=== PATIENT | female | born 1980 | race Caucasian/White ===

== ENCOUNTER 2016-12-04 07:23 | Emergency (ER) | payer MEDICAID, OTHER ==
[2016-12-04 07:32] VITALS: BP 122/76; PULSE 70; RESP 20; TEMP 98
--- NOTE | 2016-12-04 09:14 | ED ---
General Adult HPI - General Chief complaint: Eye Problems Stated complaint: chemical in eyes - [facility] Time Seen by Provider: 12/04/16 08:57 Source: patient, RN notes reviewed Mode of arrival: ambulatory Limitations: no limitations - History of Present Illness Initial comments: Patient 36-year-old female who presents emergency room today with a chief complaint of chemical exposure to her eyes. She admits that this happened approximately 2 hours ago. She states that she immediately flushed her eyes out. She states she was wearing contacts she did take them out Foster eyes. She states her eyes back in with tap water cleaning off the contacts. She states that he feel little dry. She denies any other complaints or symptoms. Patient denies any recent fever, chills, shortness of breath, chest pain, back pain, abdominal pain, nausea or vomiting, numbness or tingling, dysuria or hematuria, constipation or diarrhea, headaches or visual changes, or any other complaints. - Related Data Home Medications Medication Instructions Recorded Confirmed Cetirizine HCl [Zyrtec] 10 mg PO DAILY 04/22/16 12/04/16 Garlic 1 tab PO DAILY 12/04/16 12/04/16 Ibuprofen [Motrin] 600 mg PO Q6HR PRN 12/04/16 12/04/16 [place]-3 Fatty Acids/Fish Oil [Fish 1 cap PO DAILY 12/04/16 12/04/16 Oil 1,000 mg Softgel] Allergies Allergy/AdvReac Type Severity Reaction Status Date / Time No Known Allergies Allergy Verified 12/04/16 07:43 Review of Systems ROS Statement: Those systems with pertinent positive or pertinent negative responses have been documented in the HPI. ROS Other: All systems not noted in ROS Statement are negative. Past Medical History Past Medical History: No Reported History History of Any Multi-Drug Resistant Organisms: None Reported Past Surgical History: No Surgical Hx Reported Additional Past Surgical History / Comment(s): sinus surgery Past Psychological History: No Psychological Hx Reported Smoking Status: Never smoker Past Alcohol Use History: Occasional Past Drug Use History: None Reported General Exam - General Exam Comments Initial Comments: General: The patient is awake and alert, in no distress, and does not appear acutely ill. Eye: Pupils are equal, round and reactive to light, extra-ocular movements are intact. No nystagmus. There is normal conjunctiva bilaterally. No signs of icterus. Ears, nose, mouth and throat: There are moist mucous membranes and no oral lesions. Neck: The neck is supple, there is no JVD. Cardiovascular: There is a regular rate and rhythm. No murmur, rub or gallop is appreciated. Respiratory: Lungs are clear to auscultation, respirations are non-labored, breath sounds are equal. No wheezes, stridor, rales, or rhonchi. Musculoskeletal: Normal ROM, no tenderness. Strength 5/5. Sensation intact. Pulses equal bilaterally 2+. Neurological: A&O x 3. CN II-XII intact, There are no obvious motor or sensory deficits. Coordination appears grossly intact. Speech is normal. Skin: Skin is warm and dry and no rashes or lesions are noted. Psychiatric: Cooperative, appropriate mood & affect, normal judgment. Limitations: no limitations Course Vital Signs 12/04/16 07:29 Temperature 98 F Pulse Rate 70 Respiratory 20 Rate Blood Pressure 122/76 O2 Sat by Pulse 100 Oximetry Medical Decision Making - Medical Decision Making PH was checked in both eyes which is 7.0 bilaterally. Patient did flush her eyes. It was recommended that she takes her contacts out. She states she does have glasses in a car that she can wear. Patient advised to discard this pair of contacts. Advised to continue saline drops throughout the day as needed for comfort. Advised return for any other concerns. Disposition Clinical Impression: Chemical exposure of eye Disposition: HOME SELF-CARE Condition: Good Instructions: Eye Wash (Into the eye) Additional Instructions: Please continue use saline drops in ear eyes as needed throughout the day. Please discard pair of contacts as discussed. Please return to emergency room if any symptoms increase or worsen or for any other concerns. Time of Disposition: 09:13
== END 2016-12-04 09:31 | disposition home or self-care (01) ==
LOC: EC 07:23
DX: Z77.098 Contact with and (suspected) exposure to other hazardous, chiefly nonmedicinal, chemicals (principal); Z79.899 Other long term (current) drug therapy
CPT/HCPCS: 99283

== ENCOUNTER 2017-01-09 14:27 | Emergency (ER) | payer MEDICAID, OTHER ==
[2017-01-09 14:35] VITALS: BP 121/67; PULSE 75; RESP 16; TEMP 97.6
--- NOTE | 2017-01-09 14:49 | ED ---
Lower Extremity Injury HPI - General Chief Complaint: Extremity Injury, Lower Stated Complaint: Ankle Injury Time Seen by Provider: 01/09/17 14:37 Source: patient, RN notes reviewed Mode of arrival: ambulatory Limitations: no limitations - History of Present Illness Initial Comments: 36-year-old female presents emergency Department chief complaint left foot and ankle pain. She states that she playing flag football and states that she twisted her ankle. Patient states is swollen she's had prior fracture. Patient states she is increased with ambulation. Patient's pain is primary on the lateral aspect. - Related Data Home Medications Medication Instructions Recorded Confirmed Cetirizine HCl [Zyrtec] 10 mg PO DAILY 04/22/16 01/09/17 Garlic 1 tab PO DAILY 12/04/16 01/09/17 Ibuprofen [Motrin] 600 mg PO Q6HR PRN 12/04/16 01/09/17 [place]-3 Fatty Acids/Fish Oil [Fish 1 cap PO DAILY 12/04/16 01/09/17 Oil 1,000 mg Softgel] Allergies Allergy/AdvReac Type Severity Reaction Status Date / Time No Known Allergies Allergy Verified 01/09/17 14:42 Review of Systems ROS Statement: Those systems with pertinent positive or pertinent negative responses have been documented in the HPI. ROS Other: All systems not noted in ROS Statement are negative. Past Medical History Past Medical History: No Reported History History of Any Multi-Drug Resistant Organisms: None Reported Past Surgical History: No Surgical Hx Reported Additional Past Surgical History / Comment(s): sinus surgery Past Psychological History: No Psychological Hx Reported Smoking Status: Never smoker Past Alcohol Use History: Occasional Past Drug Use History: None Reported General Exam Limitations: no limitations General appearance: alert, in no apparent distress Head exam: Present: atraumatic, normocephalic, normal inspection Respiratory exam: Present: normal lung sounds bilaterally. Absent: respiratory distress, wheezes, rales, rhonchi, stridor Cardiovascular Exam: Present: regular rate, normal rhythm, normal heart sounds. Absent: systolic murmur, diastolic murmur, rubs, gallop, clicks Extremities exam: Present: other (Left ankle there is moderate swelling, tenderness with palpation there is no iris deformity there is some tenderness to the lateral left foot over the fifth metatarsal) Skin exam: Present: warm, dry, intact, normal color. Absent: rash Course Vital Signs 01/09/17 14:31 Temperature 97.6 F Pulse Rate 75 Respiratory 16 Rate Blood Pressure 121/67 O2 Sat by Pulse 99 Oximetry Medical Decision Making - Medical Decision Making 36-year-old female presented emergency from for left ankle foot pain. There is no acute fracture. Patient has a left ankle sprain. Patient be discharged at this time. Return parameters were discussed. Disposition Clinical Impression: Left ankle sprain Disposition: HOME SELF-CARE Condition: Stable Instructions: Ankle Sprain (ED) Additional Instructions: Please return to the Emergency Department if symptoms worsen or any other concerns. Time of Disposition: 15:04
--- NOTE | 2017-01-09 15:01 | XR ---
EXAMINATION TYPE: XR ankle complete LT DATE OF EXAM: 01/09/2017 2:57 PM COMPARISON: NONE HISTORY: Pain FINDINGS: Three views of the ankle demonstrate the ankle mortise to be intact and symmetric. The joint spaces are preserved. The osseous structures are intact. Large spurs involving the calcaneus. Soft tissue swelling laterally. IMPRESSION: 1. No definite acute fracture or dislocation, if symptoms persist follow-up study in 7 to 10 days wou ld be suggested.
--- NOTE | 2017-01-09 15:02 | XR ---
EXAMINATION TYPE: XR foot complete LT DATE OF EXAM: 01/09/2017 2:57 PM COMPARISON: NONE HISTORY: Pain TECHNIQUE: Three views are submitted. FINDINGS: The osseous structures are intact and the joint spaces are preserved. There is no acute fracture or dislocation. Large calcaneal spur. IMPRESSION: 1. No acute fracture or dislocation. If symptoms persist, follow-up exam in 7 to 10 days could be ob tained.
== END 2017-01-09 15:15 | disposition home or self-care (01) ==
LOC: EC 14:27
DX: S93.402A Sprain of unspecified ligament of left ankle, initial encounter (principal); M79.672 Pain in left foot; Z79.899 Other long term (current) drug therapy; X50.9XXA Other and unspecified overexertion or strenuous movements or postures, initial encounter; Y93.62 Activity, american flag or touch football
CPT/HCPCS: 99283

== ENCOUNTER → 2020-01-19 | Outpatient (CLI) | payer MEDICAID, OTHER | END | disposition home or self-care (01) | LOC: LABWHC1 09:18 | PROVIDERS: ATTEND Pediatrics Pediatric Infectious Diseases | DX: U07.1 COVID-19 (principal) | CPT/HCPCS: 87635 ==

== ENCOUNTER → 2020-02-06 | Outpatient (CLI) | payer MEDICAID, OTHER ==
--- NOTE | 2020-02-06 16:18 | CT ---
EXAMINATION TYPE: CT sinus wo con DATE OF EXAM: 02/06/2020 COMPARISON: CT facial bones 06/03/2014 HISTORY: chronic sinusitis CT DLP: 660.8 mGycm. Automated Exposure Control for Dose Reduction was Utilized. TECHNIQUE: CT scan of the sinuses is performed without contrast, axial images are obtained, coronal r eformatted images are also reviewed. FINDINGS: Mucoperiosteal thickening is present within the maxillary sinuses, oval area of low-attenua tion in the left maxillary sinus may represent a mucous retention cyst. Inflammatory change also pres ent in the ethmoid air cells. Ostiomeatal units are patent. Visualized portion of mastoid air cells show no abnormal opacification. The globes are intact bilate rally. IMPRESSION: The sinuses are similar in appearance, correlate for chronic sinusitis.
== END | disposition home or self-care (01) ==
LOC: RADCTMAIN 15:42
PROVIDERS: ATTEND Otolaryngology
DX: J32.9 Chronic sinusitis, unspecified (principal)
CPT/HCPCS: 70486

== ENCOUNTER → 2020-03-01 | Day surgery (SDC) | payer MEDICAID, OTHER ==
[2020-02-27 16:17] VITALS: BMI 19.4
[~2020-03-01] MED LIST: ACETAMINOPHEN TAB 325 MG TAB ONE; ACETAMINOPHEN TAB 325 MG TAB PO STA; ACETAMINOPHEN TAB 500 MG TAB ONE; ACETAMINOPHEN TAB 500 MG TAB PO ONE; BACITRACIN 500 UNIT/GM OINT 28.4 GM TUBE TOPICAL ONE; DEXAMETHASONE SOD PHOSPHATE 10 MG/ML 1 ML VIAL IV ONE; DEXAMETHASONE SOD PHOSPHATE 10 MG/ML 1 ML VIAL ONE; DEXAMETHASONE SOD PHOSPHATE 4 MG/ML 1 ML VIAL IV ONE; EPINEPHrine 1 MG/ML (MDV) 30 ML VIAL TOPICAL ONE; FAMOTIDINE 20 MG/2 ML VIAL IV ONE; FLUORESCEIN STRIPS 1 MG STRIP MISCELLANE ONE; LACTATED RINGERS 1,000 ML IV SCH; LIDOCAINE 1% (10MG/ML) FOR IV START INTRADERMA PRN; LIDOCAINE 1% INJ 10MG/ML (20 ML MDV) ONE; LIDOCAINE 1%-EPI 1:100,000 20 ML VIAL SUBMUCOSAL ONE; MELOXICAM 7.5 MG TAB PO ONE; MELOXICAM 7.5 MG TAB PO SCH; MIDAZOLAM 2 MG/2 ML VIAL ONE; ONDANSETRON 4 MG/2 ML VIAL IVP ONE; ONDANSETRON 4 MG/2 ML VIAL ONE; OXYMETAZOLINE 0.05% NASL SPRAY 1 SPRAY BOTTLE ONE; PROPOFOL 10 MG/ML 20 ML VIAL IV ONE; ROCURONIUM BROMIDE 10 MG/ML 5 ML VIAL IV ONE; SCOPOLAMINE 1.5MG/72HR PATCH TRANSDERM ONE; SUCCINYLCHOLINE CHLORIDE 100 MG/5 ML SYR IV ONE; fentaNYL (PF) 50 MCG/ML 2 ML AMP ONE
[2020-03-01] MEDS: OXYMETAZOLINE 0.05% NASL SPRAY 1 SPRAY BOTTLE NASAL ONE ×5 (06:33→06:53)
[2020-03-01 06:58] LABS: Glucose,Whole Blood 107 mg/dL (75-99)
--- NOTE | 2020-03-01 08:36 | P.OP ---
Preoperative Diagnosis: Chronic sinusitis, maxillary, ethmoid, frontal with bilateral maxillary sinus polyps Deviated nasal septum Bilateral hypertrophy of the inferior nasal turbinates with obstruction Postoperative Diagnosis: Same Procedure(s) Performed: Bilateral functional endoscopic sinus surgery of the maxillary ethmoid and frontal sinuses with maxillary sinus polypectomy Bilateral submucosal resection of the inferior nasal turbinates with outfracturing compression Septoplasty Anesthesia: ABIOLA Surgeon: Fred Mallory Estimated Blood Loss (ml): 10 Pathology: other (Sinonasal) Condition: stable Disposition: PACU Indications for Procedure: This patient presented to the office with many years of constant sinus infec tions. She is tried multiple antibiotics decongestants cortisone nasal sprays and antihistamines with no improvement. CAT scan done showing bilateral maxillary sinus polyposis and chronic disease along with ethmoiditis and frontal sinusitis. Deviated septum was noted and the patient had very large obstructive inferior turbinates. Due to the fact that her problems admitted going on for many years and in fact that she has failed medical therapy and the fact that she has chronic sinus disease on CAT scan we've elected to proceed forward with sinus surgery. All risks, benefits, and alternative therapies were discussed. Consent was obtained and all questions were answered. Operative Findings: Patient was found to have a severe deviated nasal septum with large obstructive inferior turbinates. There were large polyps and cysts of the maxillary sinuses bilaterally with the left side being worse than the right. Significant ethmoid sinus disease and disease and the frontal sinuses were also noted. There is no evidence of sphenoid disease. Description of Procedure: This patient was taken to the operative room and placed in the supine position. A general inhalation anesthetic was administered to the patient by the department of anesthesia with a functioning IV line in place. The patient was monitored throughout the entire case by the department of anesthesia. The eyes were taped shut for protection. The patient was placed in a slight reverse Trendelenburg position. The patient had previously utilize Afrin nasal spray preoperatively. The nose was evaluated and the septum lateral nasal wall and inferior turbinates were injected with lidocaine 1% with epinephrine 1 100,000 bilaterally. Approximately 10 minutes were allowed wait for full vasoconstrictive effects to take place. At this point a caudal incision was made over the caudal portion of the left septum down to the mucoperichondrium. A mucoperichondrial flap was elevated on the left side and dissection was carried with use of tunnels posteriorly. We then made a crossover incision through the cartilage to the contralateral side and for the mucoperichondrial flap development was performed to the extent of visualization on the contralateral side. After the cartilage was freed with use of several crosshatching incisions the septum was straightened and placed back in the midline. The septum was sutured fixated to the vomerian groove. Excellent straightening occurred and the septum was visibly straight. Incision was closed with a 40 rapid Vicryl. We utilized a running nonlocking fashion for closure of the incision. A quilting stitch was used to reapproximate the septal flaps with use of a 40 rapid Vicryl. We then entered the nose with a 0 and 30 Negron susy endoscope. Previous to this we did inject the lateral nasal wall and middle turbinate and uncinate process with lidocaine 1% with epinephrine 1 100,000. Approximately 10 minutes were allowed wait for full vasoconstrictive effects to take place. With use of a microdebrider and a pediatric backbiter, we took down the uncinate process bilaterally. We then opened the maxillary sinuses bilaterally. We utilized a microdebrider for this and entered the maxillary sinuses and removed diseased tissue. This was done bilaterally. After the maxillary sinuses were opened and the diseased tissue was removed we entered the ethmoid bulla and with use of a microdebrider and up-biting ottoniel and Latrice, we followed the fovea frontalis through the basal lamella and into the posterior ethmoid air cells and did a total ethmoidectomy. We removed the anterior ethmoid air cells with use of a microdebrider and up-biting boss. After all the anterior ethmoid air cells were removed we did the same in the posterior ethmoid. A total ethmoidectomy was completed in that fashion with removal of all the anterior and posterior ethmoid air cells and diseased tissue. We then entered the frontal sinuses with a giraffe and up-biting Blakesley entered on the agar nasi cells. We open the frontal sinuses and removed sinus tissue that was diseased. We explored the frontal sinuses bilaterally. To summarize all sinuses were open all sinuses were explored and we remove diseased tissue from the sphenoid maxillary and frontal sinuses. Ethmoid sinuses were opened totally. Xerogel was inserted and minimal bleeding was encountered. We reinspected the skull base there is no signs of any orbital penetration or signs of any intracranial penetration. The sugical site was reinspected after the xerogel was placed and no bleeding was seen. Bilateral Merocel sponge packs placed in a gloved fingers were placed intranasally as nasal packs and she'll be removing these in 24-48 hours. This was done at the end of the case. Attention was then paid to the inferior turbinates. The bilateral inferior turbinates were hypertrophic and obstructive. We entered the anterior portion of the inferior turbinates with use of a microdebrider. We remove bone and submucosal elements with use of a microdebrider bilaterally. The inferior turbinates underwent a submucosal resection with removal of submucosal tissue and bone. We obtained a much better and normal in size for breathing. The inferior turbinates were then outfractured and compressed with a Boyes nasal elevator. Excellent airway was obtained and was symmetric bilaterally. No bleeding was encountered.
[2020-03-01 08:39] VITALS: TEMP 97.4
[2020-03-01] MEDS: HYDROmorphone 0.5 MG/0.5 ML SYRINGE IVP PRN ×2 (08:40→09:02)
[2020-03-01 10:56] VITALS: BP 124/67; PULSE 62; RESP 18
== END | disposition home or self-care (01) ==
LOC: OR 06:16
PROVIDERS: ATTEND Otolaryngology
DX: J32.8 Other chronic sinusitis (principal); J34.2 Deviated nasal septum; J33.8 Other polyp of sinus; J34.3 Hypertrophy of nasal turbinates; J34.1 Cyst and mucocele of nose and nasal sinus; Z87.891 Personal history of nicotine dependence; F41.9 Anxiety disorder, unspecified; Z97.3 Presence of spectacles and contact lenses; Z98.890 Other specified postprocedural states; Z79.52 Long term (current) use of systemic steroids; Z79.899 Other long term (current) drug therapy
CPT/HCPCS: 81025; 88305; 30520; 31267; 31253; 30140; J0171; J2250; J1100; J2405; J0690; J2001; J3010; J0330; J2704; J1170

== ENCOUNTER → 2021-11-11 | Outpatient (CLI) | payer OTHER ==
--- NOTE | 2021-11-11 12:58 | MR ---
MRCP HISTORY: Pancreatitis, abnormal CT, abdominal pain Multiplanar multisequence imaging through the abdomen, three-dimensional reconstructions performed th rough the biliary system. Correlation to ultrasound gallbladder 09/22/2021, CT 09/20/2021 Gallbladder is distended. No evident gallstone or cholecystitis. No evident choledocholithiasis. Ther e are no dilated intra or extrahepatic biliary ducts. Signal void at the level of the proper hepatic duct seen on reconstructed images thought to be artifactual and possibly related to portal vein artif act. The liver is not enlarged. T2 bright focus is noted within the right lobe of the liver, possible hemangioma measuring approximately 9 mm. Pancreas shows a T2 bright focus within the head, possibly cyst or ductal ectasia measuring only 5 to 6 mm. On axial image #37 of series 701 there is an irregular cystic area measuring proximally 2.5 cm with a thickened wall, findings likely correlate with CT and may represent pseudocyst immediately an terior to the pancreatic tail No retroperitoneal adenopathy. Aorta shows normal caliber. Spleen shows no mass. Lung bases show no e ffusion. Kidneys show no mass. Adrenal glands are symmetric. Appendix shows no inflammatory change. N o bowel obstruction. IMPRESSION: No abnormality evident to account for patient's symptoms. Possible cirrhosis present albertina cent to the pancreatic tail
== END | disposition home or self-care (01) ==
LOC: RADMRIMAIN 08:24
PROVIDERS: ATTEND Surgery
DX: K85.90 Acute pancreatitis without necrosis or infection, unspecified (principal)
CPT/HCPCS: 74181

== ENCOUNTER 2022-04-02 10:53 | Emergency (ER) | payer OTHER ==
[2022-04-02 11:08] VITALS: TEMP 98
[2022-04-02 12:03] LABS: Basophils % (A) 1 %; Eosinophils % (A) 1 %; HGB 14.2 gm/dL (11.4-16.0); Lymphocytes # (A) 0.6 k/uL (1.0-4.8); Lymphocytes % (A) 20 %; MCH 36.2 pg (25.0-35.0); MCHC 34.8 g/dL (31.0-37.0); Macrocytosis Slight; Mean Platelet Volume 8.2; Monocytes # (A) 0.2 k/uL (0-1.0); Monocytes % (A) 6 %; Neutrophils # (A) 2.1 k/uL (1.3-7.7); Neutrophils % (A) 70 %; Platelet Count 170 k/uL (150-450); RBC 3.94 m/uL (3.80-5.40); RDW 13.5 % (11.5-15.5)
[2022-04-02 12:17] LABS: Partial Thromboplastin Time 24.9 sec (22.0-30.0); Prothrombin Time 10.9 sec (9.0-12.0)
[2022-04-02 12:53] LABS: ALT 106 U/L (4-34); AST 163 U/L (14-36); African American GFR (CKD) >90 (>60 ml/min/1.73 sqM); Albumin 5.6 g/dL (3.5-5.0); Alkaline Phosphatase 95 U/L (38-126); Anion Gap 17 mmol/L; Blood Urea Nitrogen 8 mg/dL (7-17); Calcium 10.2 mg/dL (8.4-10.2); Carbon Dioxide 24 mmol/L (22-30); Chloride 95 mmol/L (98-107); Glucose 88 mg/dL (74-99); Magnesium 1.6 mg/dL (1.6-2.3); Non-African American GFR(CKD) >90 (>60 ml/min/1.73 sqM); Potassium 4.4 mmol/L (3.5-5.1); Sodium 136 mmol/L (137-145); Total Bilirubin 3.2 mg/dL (0.2-1.3); Total Protein 8.9 g/dL (6.3-8.2)
[2022-04-02] MEDS ORDERED: LORazepam 0.5 MG TAB PO STA ×2 (12:55→14:46)
[2022-04-02] MEDS ORDERED: ASPIRIN 81 MG PO STA (12:55)
[2022-04-02] MEDS ORDERED: ONDANSETRON ODT 4 MG TAB PO STA (12:56)
--- NOTE | 2022-04-02 13:49 | XR ---
EXAMINATION TYPE: XR chest 2V DATE OF EXAM: 04/02/2022 COMPARISON: NONE HISTORY: Chest pain TECHNIQUE: Frontal and lateral views of the chest are obtained. FINDINGS: There is no focal air space opacity, pleural effusion, or pneumothorax seen. The cardiac silhouette size is within normal limits. Patient is rotated. The osseous structures are intact. IMPRESSION: No acute cardiopulmonary process.
--- NOTE | 2022-04-02 14:37 | ED ---
General Adult HPI - General Chief complaint: Chest Pain Stated complaint: Chest Pain,SOB Time Seen by Provider: 04/02/22 12:28 Source: patient, RN notes reviewed, old records reviewed Mode of arrival: wheelchair Limitations: no limitations - History of Present Illness Initial comments: Patient is a 42-year-old female with past medical history for former daily alcohol use which she normally longer dines, who presents emergency Department complaining of a chest tightness sensation. She also endorses palpitations. Has been ongoing since the last 2 weeks, however slightly worse this morning at 3 AM. Is under more stress lately as she is actively her ex-. Describes it as palpitations, heart rate increasing. States that there was some mild shortness breath earlier but that has resolved. She just states she breaks out in sweats when it happens. No history of anxiety. No history of panic attacks. Presents for further evaluation at this time. - Related Data Home Medications Medication Instructions Recorded Confirmed Cyanocobalamin (Vitamin B-12) 1,000 mcg PO DAILY 02/27/20 09/21/21 [Vitamin B-12] Cholecalciferol [Vitamin D3 (25 25 mcg PO DAILY 09/21/21 09/21/21 Mcg = 1000 Iu)] Famotidine [Pepcid AC] 10 mg PO DAILY PRN 09/21/21 09/21/21 Folic Acid 1 mg PO DAILY 09/21/21 09/21/21 Ibuprofen [Motrin] 800 mg PO TID PRN 09/21/21 09/21/21 Loratadine [Claritin] 10 mg PO DAILY PRN 09/21/21 09/21/21 Magnesium Oxide [Mag-Ox] 400 mg PO DAILY 09/21/21 09/21/21 Multivitamins, Thera [Multivitamin 1 tab PO DAILY 09/21/21 09/21/21 (formulary)] Potassium Gluconate [Potassium 99 mg PO DAILY 09/21/21 09/21/21 Gluconate ER] Vitamin E (Dl,Tocopheryl Acet) 400 unit PO DAILY PRN 09/21/21 09/21/21 [Vitamin E (400 Iu = 180 mg)] Zinc 50 mg PO DAILY 09/21/21 09/21/21 Previous Rx's Medication Instructions Recorded LORazepam [Ativan] 1 mg PO BID PRN 3 Days #6 tab 04/02/22 Allergies Allergy/AdvReac Type Severity Reaction Status Date / Time cat dander Allergy CONGESTION Verified 04/02/22 11:08 Review of Systems ROS Statement: Those systems with pertinent positive or pertinent negative responses have been documented in the HPI. Review of Systems: CONST: Denies fever EYES: Denies blurry vision ENT: Denies nasal congestion C/V: Endorses palpitations RESP: Denies shortness of breath GI: Denies abdominal pain : Denies dysuria SKIN: Denies rash. MSK: Denies joint pain. NEURO: Denies headache ROS Other: All systems not noted in ROS Statement are negative. Past Medical History Past Medical History: No Reported History History of Any Multi-Drug Resistant Organisms: None Reported Past Surgical History: No Surgical Hx Reported Additional Past Surgical History / Comment(s): sinus surgery Past Anesthesia/Blood Transfusion Reactions: No Reported Reaction Past Psychological History: No Psychological Hx Reported Smoking Status: Current every day smoker Past Alcohol Use History: Occasional Past Drug Use History: None Reported - Past Family History Mother Family Medical History: No Reported History General Exam - General Exam Comments Initial Comments: General: Appears in no acute distress. HEAD: Normal with no signs of head trauma. EYES: PERRLA, EOMI, conjunctiva normal, no discharge. ENT: Hearing grossly intact, normal oropharynx. RESPIRATORY: Clear breath sounds bilaterally. No wheezes, rales, or rhonchi. C/V: Tachycardic in triage but currently Regular rate and rhythm. S1 and S2 auscultated, no edema, peripheral pulses 2+ and intact throughout ABD: Abd is soft, nontender, nondistended EXT: Normal range of motion, no obvious deformity SKIN: No rashes or lesions observed on exposed skin. NEURO: Alert and oriented 4. No focal deficits. Limitations: no limitations Course Vital Signs 04/02/22 11:06 Temperature 98 F Pulse Rate 115 H Respiratory 20 Rate Blood Pressure 154/80 O2 Sat by Pulse 99 Oximetry Medical Decision Making - Medical Decision Making Based on the patient's presentation and physical exam, I'm concerned for her chest tightness. Seems related to anxiety, and I asked the patient regarding this. She is under more stress and does endorse that this could be the cause. However I did recommend we obtain a cardiac workup that she was in agreement. Will be given an aspirin. Was evaluated in triage initially, were labs are drawn. She was in agreement this plan. Vital signs are within normal limits. EKG shows no signs of acute ischemia. Chest x-ray shows no acute cardiopulmonary process. Laboratory studies are remarkable for an undetectable troponin. They show slightly elevated LFTs, which is likely related to her history of prior drinking. No abdominal process. Has a mild leukopenia of 3.0. I discussed with the patient the results of her laboratory studies and imaging. She is feeling improved following a dose of Ativan. I believe it is safer to be discharged home with close follow-up. Heart scores low. Has been greater than 3 hours since onset of symptoms with undetected troponin. She was in agreement this plan.Vital signs within normal limits and tachycardia is resolved. I will provide the patient with a prescription for Ativan. I instructed the patient to follow up with their PCP in the next 1-3 days. I explained that the patient should return to the emergency department if they experience any worsening symptoms. Strict return precautions were discussed with the patient. The patient expressed understanding of these instructions. I answered all questions that the patient had. The patient was discharged home in good condition with their prescriptions and follow up information. - Lab Data Result diagrams: 04/02/22 11:19 04/02/22 11:19 Lab Results 04/02/22 04/02/22 04/02/22 Range/Units 11:19 11:19 11:19 WBC 3.0 L (3.8-10.6) k/uL RBC 3.94 (3.80-5.40) m/uL Hgb 14.2 (11.4-16.0) gm/dL Hct 41.0 (34.0-46.0) % MCV 104.0 H (80.0-100.0) fL MCH 36.2 H (25.0-35.0) pg MCHC 34.8 (31.0-37.0) g/dL RDW 13.5 (11.5-15.5) % Plt Count 170 (150-450) k/uL MPV 8.2 Neutrophils % 70 % Lymphocytes % 20 % Monocytes % 6 % Eosinophils % 1 % Basophils % 1 % Neutrophils # 2.1 (1.3-7.7) k/uL Lymphocytes # 0.6 L (1.0-4.8) k/uL Monocytes # 0.2 (0-1.0) k/uL Eosinophils # 0.0 (0-0.7) k/uL Basophils # 0.0 (0-0.2) k/uL Macrocytosis Slight PT 10.9 (9.0-12.0) sec INR 1.0 (<1.2) APTT 24.9 (22.0-30.0) sec Sodium 136 L (137-145) mmol/L Potassium 4.4 (3.5-5.1) mmol/L Chloride 95 L (98-107) mmol/L Carbon Dioxide 24 (22-30) mmol/L Anion Gap 17 mmol/L BUN 8 (7-17) mg/dL Creatinine 0.52 (0.52-1.04) mg/dL Est GFR (CKD-EPI)AfAm >90 (>60 ml/min/1.73 sqM) Est GFR (CKD-EPI)NonAf >90 (>60 ml/min/1.73 sqM) Glucose 88 (74-99) mg/dL Calcium 10.2 (8.4-10.2) mg/dL Magnesium 1.6 (1.6-2.3) mg/dL Total Bilirubin 3.2 H (0.2-1.3) mg/dL AST 163 H (14-36) U/L ALT 106 H (4-34) U/L Alkaline Phosphatase 95 (38-126) U/L Troponin I (0.000-0.034) ng/mL Total Protein 8.9 H (6.3-8.2) g/dL Albumin 5.6 H (3.5-5.0) g/dL 04/02/22 Range/Units 11:19 WBC (3.8-10.6) k/uL RBC (3.80-5.40) m/uL Hgb (11.4-16.0) gm/dL Hct (34.0-46.0) % MCV (80.0-100.0) fL MCH (25.0-35.0) pg MCHC (31.0-37.0) g/dL RDW (11.5-15.5) % Plt Count (150-450) k/uL MPV Neutrophils % % Lymphocytes % % Monocytes % % Eosinophils % % Basophils % % Neutrophils # (1.3-7.7) k/uL Lymphocytes # (1.0-4.8) k/uL Monocytes # (0-1.0) k/uL Eosinophils # (0-0.7) k/uL Basophils # (0-0.2) k/uL Macrocytosis PT (9.0-12.0) sec INR (<1.2) APTT (22.0-30.0) sec Sodium (137-145) mmol/L Potassium (3.5-5.1) mmol/L Chloride (98-107) mmol/L Carbon Dioxide (22-30) mmol/L Anion Gap mmol/L BUN (7-17) mg/dL Creatinine (0.52-1.04) mg/dL Est GFR (CKD-EPI)AfAm (>60 ml/min/1.73 sqM) Est GFR (CKD-EPI)NonAf (>60 ml/min/1.73 sqM) Glucose (74-99) mg/dL Calcium (8.4-10.2) mg/dL Magnesium (1.6-2.3) mg/dL Total Bilirubin (0.2-1.3) mg/dL AST (14-36) U/L ALT (4-34) U/L Alkaline Phosphatase (38-126) U/L Troponin I <0.012 (0.000-0.034) ng/mL Total Protein (6.3-8.2) g/dL Albumin (3.5-5.0) g/dL - EKG Data -: EKG Interpreted by Me EKG Comments: 12-lead Electrocardiogram Interpretation Note EKG was reviewed and interpreted by myself. 12-lead ECG performed at 1119 is interpreted by me as revealing normal sinus rhythm at a rate of 94 beats per minute. Duarte is normal. PA intervals 114 ms, QRS duration is 79 ms, QTc is 405 ms.. There were no ST or T wave abnormalities to suggest myocardial ischemia or injury. R wave progression across the precordium was satisfactory. By my interpretation this EKG is non-diagnostic for acute ischemia. Disposition Clinical Impression: Heart palpitations, Anxiety Disposition: HOME SELF-CARE Condition: Stable Instructions (If sedation given, give patient instructions): Anxiety (ED) Prescriptions: LORazepam [Ativan] 1 mg PO BID PRN 3 Days #6 tab PRN Reason: Anxiety Is patient prescribed a controlled substance at d/c from ED?: Yes When asked, does pt state using other controlled substances?: No If prescribed controlled substance>3 days was MAPS reviewed?: Prescribed <3 Days Referrals: Rashmi Hyatt MD [Primary Care Provider] - 1-2 days Time of Disposition: 14:30
[2022-04-02] MEDS ORDERED: LORazepam 1 MG TAB PO STA (14:46)
[2022-04-02 15:17] VITALS: BP 123/85; PULSE 81; RESP 16
== END 2022-04-02 15:17 | disposition home or self-care (01) ==
LOC: EC 10:53
DX: R00.2 Palpitations (principal); F17.200 Nicotine dependence, unspecified, uncomplicated; Z91.018 Allergy to other foods
CPT/HCPCS: 36415; 71046; 80053; 83735; 84484; 85025; 85610; 85730; 93005; 99285

== ENCOUNTER → 2022-06-16 | Outpatient (CLI) | payer OTHER ==
--- NOTE | 2022-06-16 13:26 | MR ---
MR pancreas wo/w con: 06/16/2022 11:39 AM INDICATION: 42 years old Female. K86.2 CYST OF PANCREAS. COMPARISON: MRCP 11/11/2021. TECHNIQUE: Multiplanar multisequence MR imaging of the pancreas was performed both before and after t he intravenous administration of 6 mL of Gadavist. FINDINGS: LUNG BASES: Unremarkable. ABDOMEN: LIVER: Normal morphology. No significant difference of hepatic signal intensity between in and out of phase images. Stable right hepatic lobe T2 hyperintense 8 millimeter lesion (series 601, image 28). There is peripheral nodular discontinuous enhancement consistent with a benign hemangioma. BILE DUCTS: There is no intra or extrahepatic biliary ductal dilatation. GALLBLADDER: Unremarkable. PANCREAS: Normal caliber pancreatic duct. Previous T2 bright focus within the head the pancreas corre sponds to mild ductal ectasia 5 mm. Previous irregular cystic area abutting the pancreatic tail has d ecreased in size measuring 1.2 cm with T1 hyperintensity now demonstrated (series 801, image 78). No surrounding peripancreatic inflammatory changes or fluid collections. No abnormal enhancement. SPLEEN: Within normal limits. ADRENAL GLANDS: Unremarkable. KIDNEYS: Within normal limits. No hydronephrosis. BOWEL: Normal caliber. PERITONEUM: No ascites or free air. No fluid collection. VASCULATURE: No abdominal aortic aneurysm. Major abdominal veins are patent. RETROPERITONEUM: Within normal limits. LYMPH NODES: Within normal limits. ABDOMINAL WALL: Unremarkable. BONES: No suspicious osseous abnormality. IMPRESSION: Decrease in size of irregular cystic area adjacent to the pancreatic tail now demonstrating T1 hyperi ntensity consistent with proteinaceous/hemorrhagic contents. Findings suggest involuting complex panc reatic pseudocyst.
== END | disposition home or self-care (01) ==
LOC: RADMRIMAIN 10:49
PROVIDERS: ATTEND Surgery
DX: K86.2 Cyst of pancreas (principal)
CPT/HCPCS: 74183; A9585

== ENCOUNTER 2023-05-28 08:55 | Day surgery (SDC) | payer OTHER ==
[2023-05-22 14:34] VITALS: BMI 21.1
--- NOTE | 2023-05-28 07:01 | P.HPOB ---
History of Present Illness H&P Date: 05/28/23 Chief Complaint: menorrhagia 43 year old presents for D&C hysteroscopy and endometrial ablation with novasure. Review of Systems All systems: negative Constitutional: Denies chills, Denies fever Eyes: denies blurred vision, denies pain Ears, nose, mouth and throat: Denies headache, Denies sore throat Cardiovascular: Denies chest pain, Denies shortness of breath Respiratory: Denies cough Gastrointestinal: Denies abdominal pain, Denies diarrhea, Denies nausea, Denies vomiting Genitourinary: Denies dysuria, Denies hematuria Musculoskeletal: Denies myalgias Integumentary: Denies pruritus, Denies rash Neurological: Denies numbness, Denies weakness Psychiatric: Denies anxiety, Denies depression Endocrine: Denies fatigue, Denies weight change Past Medical History Past Medical History: No Reported History Additional Past Medical History / Comment(s): irreg and heavy menses lasting 12 days, chronic congestion, hx etoh abuse, pancreatitis History of Any Multi-Drug Resistant Organisms: None Reported Past Surgical History: Adenoidectomy Additional Past Surgical History / Comment(s): sinus surgeryx2 Past Anesthesia/Blood Transfusion Reactions: No Reported Reaction Additional Past Anesthesia/Blood Transfusion Reaction / Comment(s): no hx blood transfusion Smoking Status: Current some day smoker - Past Family History Mother Family Medical History: No Reported History Father Family Medical History: Cancer Additional Family Medical History / Comment(s): prostate Medications and Allergies Home Medications Medication Instructions Recorded Confirmed Type Ibuprofen [Motrin] 200 - 800 mg PO TID PRN 09/21/21 05/22/23 History Multivitamins, Thera [Multivitamin 1 tab PO DAILY 09/21/21 05/22/23 History (formulary)] Allergies Allergy/AdvReac Type Severity Reaction Status Date / Time cat dander Allergy CONGESTION Verified 05/22/23 14:19 Exam Osteopathic Statement: *. No significant issues noted on an osteopathic structural exam other than those noted in the History and Physical/Consult. Heart: Regular rate and rhythm Lungs: Clear to auscultation bilaterally Abdomen: Soft, nontender Extremities: Negative Homans sign Assessment and Plan (1) Menorrhagia Status: Acute Code(s): N92.0 - EXCESSIVE AND FREQUENT MENSTRUATION WITH REGULAR CYCLE SNOMED Code(s): 288284290 Plan: 1. D&C hysteroscopy and endometrial ablation with NovaSure.
[~2023-05-28 08:55] MED LIST changes: -ACETAMINOPHEN TAB 325 MG TAB ONE; -ACETAMINOPHEN TAB 325 MG TAB PO STA; -ACETAMINOPHEN TAB 500 MG TAB ONE; -ACETAMINOPHEN TAB 500 MG TAB PO ONE; -BACITRACIN 500 UNIT/GM OINT 28.4 GM TUBE TOPICAL ONE; -DEXAMETHASONE SOD PHOSPHATE 10 MG/ML 1 ML VIAL IV ONE; -DEXAMETHASONE SOD PHOSPHATE 10 MG/ML 1 ML VIAL ONE; -EPINEPHrine 1 MG/ML (MDV) 30 ML VIAL TOPICAL ONE; -FAMOTIDINE 20 MG/2 ML VIAL IV ONE; -FLUORESCEIN STRIPS 1 MG STRIP MISCELLANE ONE; -LACTATED RINGERS 1,000 ML IV SCH; -LIDOCAINE 1% (10MG/ML) FOR IV START INTRADERMA PRN; -LIDOCAINE 1% INJ 10MG/ML (20 ML MDV) ONE; -LIDOCAINE 1%-EPI 1:100,000 20 ML VIAL SUBMUCOSAL ONE; -MELOXICAM 7.5 MG TAB PO ONE; -MELOXICAM 7.5 MG TAB PO SCH; -MIDAZOLAM 2 MG/2 ML VIAL ONE; -ONDANSETRON 4 MG/2 ML VIAL ONE; -OXYMETAZOLINE 0.05% NASL SPRAY 1 SPRAY BOTTLE ONE; -PROPOFOL 10 MG/ML 20 ML VIAL IV ONE; +Pre Op ABX Message 1 EACH MISC MISCELLANE ONE; -ROCURONIUM BROMIDE 10 MG/ML 5 ML VIAL IV ONE; -SCOPOLAMINE 1.5MG/72HR PATCH TRANSDERM ONE; -SUCCINYLCHOLINE CHLORIDE 100 MG/5 ML SYR IV ONE; -fentaNYL (PF) 50 MCG/ML 2 ML AMP ONE
[2023-05-28] MEDS: LACTATED RINGERS 1,000 ML IV SCH ×2 (09:27→09:43)
[2023-05-28 09:38] VITALS: RESP 16
[2023-05-28] MEDS ORDERED: LIDOCAINE 2% INJ 20 MG/ML (2 ML VIAL) ONE (09:39)
[2023-05-28] MEDS ORDERED: KETOROLAC 15 MG/ML 1 ML VIAL ONE (09:39)
[2023-05-28] MEDS ORDERED: fentaNYL (PF) 50 MCG/ML 2 ML AMP ONE (09:39)
[2023-05-28] MEDS ORDERED: PROPOFOL 10 MG/ML 20 ML VIAL IV ONE (09:39)
[2023-05-28] MEDS ORDERED: MIDAZOLAM 2 MG/2 ML VIAL ONE (09:39)
--- NOTE | 2023-05-28 10:25 | P.OP ---
Date of Procedure: 05/28/23 Preoperative Diagnosis: 1. menorrhagia 2. skin tag Postoperative Diagnosis: same Procedure(s) Performed: D&C, hysteroscopy, endometrial ablation with NovaSure and skin tag removal Anesthesia: MAC (LMA) Surgeon: Vonnie Thornton Estimated Blood Loss (ml): 20 IV fluids (ml): 400 Urine output (ml): 2 Pathology: other (endometrial currettings, skin tag) Condition: stable Disposition: PACU Description of Procedure: Patient is taken the operating room where general anesthesia was obtained without difficulty. She was prepped and draped in normal sterile fashion dorsal lithotomy position, legs placed in the [employer] cane stirrups. Bladder was drained of all urine. Weighted speculum placed in the vagina and the anterior lip the cervix was grasped with serial tooth tenaculum. The uterus sounded to 9 cm and the cervix under 3 cm making the cavity length 6 cm. The cervix was dilated to #8 Hegar dilator. Hysteroscopy was then performed. Both ostia were visualized and there was a smooth contour of the uterus. Sharp curet was then gently used to obtain endometrial curettings. The NovaSure was introduced into the uterus with a cavity length of 6cm, width 3.6 cm. after cavity assessment was passed, the time of ablation was 82 seconds at [address]. Hysteroscopy was again performed and adequate ablation was noted. All instruments removed from the vagina. An 11 blade was used to score the skin around the skin tag that was at the posterior introitus. Skin tag was removed and 3-0 Vicryl was used to close the skin. There was a little bit of bleeding so silver nitrate stick was used to obtain excellent hemostasis. Patient tolerated the procedure well, sponge and instrument counts were correct 2 and she was taken to recovery in stable condition.
[2023-05-28 10:31] VITALS: TEMP 97.7
[2023-05-28] MEDS: HYDROmorphone 0.5 MG/0.5 ML SYRINGE IVP PRN ×4 (10:41→11:25)
[2023-05-28 12:35] VITALS: BP 120/73
[2023-05-28 12:36] VITALS: PULSE 79
== END 2023-05-28 14:28 | disposition home or self-care (01) ==
LOC: OR 08:55
PROVIDERS: ATTEND Obstetrics & Gynecology
DX: A63.0 Anogenital (venereal) warts (principal); L91.8 Other hypertrophic disorders of the skin; F17.200 Nicotine dependence, unspecified, uncomplicated; Z91.048 Other nonmedicinal substance allergy status
CPT/HCPCS: 58563; 81025; 88305; J2250; J1100; J2405; J3010; J1885; J2704; J1170; J2001